=== PATIENT | female | born 1965 | race Caucasian/White ===

== ENCOUNTER 2016-12-19 03:27 | Inpatient (IN) | payer MEDICARE, OTHER ==
--- NOTE | ~2016-12-19 | HP ---
History And Physical [place] [id number] [place]. [address] NAME: CHERELLE ISABEL : 69 STATUS : ADM IN PAT#: [id number] AGE: 51 ADM/REG DATE : 12/19/16 MR#: [id number] REPORT SERV DATE: 12/21/16 DICTATED BY: KELSI LONG DATE: 12/19/16 REPORT STATUS : Draft TRANSCRIBED BY: MODL DATE: 12/19/16 DATE OF ADMISSION: 12/19/2016 CHIEF COMPLAINT: A 51-year-old female presenting with severe bilateral leg ulcers with erythema. HISTORY OF PRESENT ILLNESS: The patient's history was obtained through an interview with the patient, mother, sister, and daughter. Patient unfortunately has been lost to medical probably by her own will for more than a year. She has become increasingly debilitated related not only to her morbid obesity but increasing leg edema with gradual ulcerations. She has noticed her legs just steadily worsen over a period of about a year, but over the last three weeks, they have become very painful and the ulcers have become quite striking. She describes leg pain particularly around her calves and feet, the left leg more pronounced than the right. A cramping, stabbing pain she describes it sometimes "like a nail gun shooting her" and also "like a rat gnawing." Gets up to a 10+ out of 10 severity. She has also had vomiting recently, constant nausea for about 3 weeks with intermittent abdominal pain. No diarrhea. She describes polydipsia, polyuria, but no dysuria. She has had diaphoretic spells but no fevers or chills, but sometimes she feels "hot and squirmy inside". She describes shortness of breath with a least bit of exertion. She has been extremely weak, almost completely bed bound. She has a son who helps her with some activities of daily living. She states her head "felt really weird" but no actual headache. She describes epigastric abdominal pain, a tightness throbbing quality, 4/10 severity. REVIEW OF SYSTEMS: Otherwise, a 14-point review of systems was obtained and was negative. MEDICAL HISTORY: 1. Posttraumatic stress disorder. 2. Morbid obesity. 3. Chronic back pain. 4. Obstructive sleep apnea, but not on CPAP. 5. No previous history of diabetes. 6. No cardiac disease. History And Physical [place] [id number] [place]. [address] NAME: CHERELLE ISABEL : 69 STATUS : ADM IN PAT#: [id number] AGE: 51 ADM/REG DATE : 12/19/16 MR#: [id number] REPORT SERV DATE: 12/21/16 DICTATED BY: KELSI LONG DATE: 12/19/16 REPORT STATUS : Draft TRANSCRIBED BY: SERAFIN DATE: 12/19/16 PAST SURGICAL HISTORY: Cholecystectomy. ALLERGIES: PENICILLIN, CODEINE, HYDROCODONE. SOCIAL HISTORY: Quit smoking in 1995. No alcohol abuse. Lives in [place], [place]. Gets around with a walker. Lives with sister and . FAMILY HISTORY: Grandmother and mother both have had ovarian cancer. CURRENT MEDICATIONS: Include naproxen 220 mg every 12 hours p.r.n., MiraLAX a pack a day. PHYSICAL EXAMINATION: VITAL SIGNS: Temperature 98.2, pulse 108, blood pressure 149/89, respiratory rate 18, and O2 saturation 97% on room air. GENERAL: A chronically ill-appearing female with poor hygiene, and she . HEENT: Eyes: No conjunctival pallor. No scleral icterus. Nares are patent. Oropharynx is clear of obstruction. Moist mucous membranes. NECK: Trachea midline. No thyromegaly. LYMPH: No cervical lymphadenopathy. No supraclavicular lymphadenopathy. RESPIRATORY: Clear to auscultation at bases. No wheezes, rales, or rhonchi. Normal respiratory effort. CARDIOVASCULAR: Tachycardic. Regular rhythm. No murmurs, rubs, or gallops. Chronic- appearing lower extremity edema with a venostasis condition. ABDOMEN: A central pattern of morbid obesity. Tender throughout abdominal examination. Nonfocal though. No guarding. No rebound. Nondistended. No hepatosplenomegaly can be appreciated by exam. DERMATOLOGICAL: The patient's lower extremities have extensive erythema, but the left leg seems more pronounced than the right. There are deep ulcerations, some of these are what could be considered like stage III as they go to the muscle depth with exposure of definite fatty and muscle tissue on the left side in particular. There is purulent drainage. The patient also has a purplish discoloration of her toes. They are cold, they drain, and exquisitely tender to palpation. PSYCHIATRIC: Normal affect. Good mood. Alert and oriented x3. LABORATORY DATA: White blood cell count 11.7, hemoglobin 14, hematocrit 42, platelets . Sodium 123, potassium 6.0, chloride 89, bicarb 24, BUN 100, bicarb 2.2, glucose 284, brain natriuretic peptide 34, troponin negative, albumin 2.9, lipase 1180, amylase 148, lactic acid 2.0. Liver enzymes within normal limits. Urinalysis negative for infection. STUDIES: 1. Chest x-ray by my own evaluation shows no acute cardiopulmonary process. 2. EKG by my own evaluation shows sinus tachycardia. ASSESSMENT AND PLAN: 1. Severe leg ulcers with cellulitis. Wound cultures were obtained at [facility] [address] [address] NAME: CHERELLE ISABEL : 69 STATUS : ADM IN [facility]#: [id number] AGE: 51 ADM/REG DATE : 12/19/16 MR#: [id number] REPORT SERV DATE: 12/21/16 DICTATED BY: KELSI LONG DATE: 12/19/16 REPORT STATUS : Draft TRANSCRIBED BY: SERAFIN DATE: 12/19/16 [facility]. We will place on IV vancomycin and obtain a wound care consult. Check arterial and venous Doppler ultrasounds. The patient has severe cyanosis of the legs. Would also like to rule out DVT. 2. Acute renal failure with BUN of 100 and creatinine of 2.2. Check CT scan of the abdomen. Place on IV fluids. 3. Hyperkalemia with potassium 6.0. Place on IV fluids. Monitor closely. 4. New diagnosis of diabetes. Check hemoglobin A1c. Add Levemir cosmetology educator consult. 5. Abdominal pain with vomiting. Slightly elevated amylase and lipase. Check a CT scan of the abdomen and pelvis. 6. Morbid obesity. Place on a bed. 7. Dyspnea. Check a CT scan of the chest as well. ASTON/SERAFIN Kelsi Long M.D. / [id number] CC: Juan Berger M.D.
--- NOTE | ~2016-12-19 | DS ---
Discharge Summary [facility] [address] [place]. [address] NAME: CHERELLE ISABEL : 69 STATUS : ADM IN [facility]#: [id number] AGE: 51 ADM/REG DATE : 12/19/16 MR#: [id number] REPORT SERV DATE: 12/25/16 DICTATED BY: Juan BERGER DATE: 12/25/16 REPORT STATUS : Draft TRANSCRIBED BY: MODVilma DATE: 12/25/16 ADMISSION DATE: 12/19/2016 DISCHARGE DATE: 12/25/2016 INTERIM SUMMARY DATE: 12/25/2016. DIAGNOSES AT THE TIME OF INTERIM SUMMARY: Chronic arterial and venous insufficiency ulcers, bilateral lower extremities, peripheral arterial disease, cellulitis secondary to #1, acute kidney injury, present on admission, resolved, sleep apnea, obesity, hypoventilation syndrome, morbid obesity, insulin-requiring diabetes. CONSULTS: Vascular Surgery. PROCEDURES: None. BRIEF HOSPITAL SUMMARY: A 51-year-old morbidly obese female, was admitted with vascular insufficiency ulcers and lower extremity cellulitis, subsequent wound culture did grow Serratia. She has currently completed with seven days of antimicrobial therapy that is culture directed and antibiotics will be discontinued after today. Her vascular evaluation did show some diminished flow on her ABIs, Vascular was consulted, and they believe that she has enough vascular flow to promote wound healing. At the present time, we are waiting transition to retirement facility. [facility] can support her bariatric issues as well as provide the necessary wound care, but they are not likely to have a bed until the first of the week . With regard to her diabetes, she is currently on correction insulin, Levemir insulin, and metformin with good glucose control. We continued to monitor her lab work on a regular basis and labs have been stable. Another member of the hospitalist team will provide care starting 12/26/2016 with anticipation of the patient transitioning to retirement after the first of the week. JEANINE/SERAFIN Juan Berger M.D. / [id number] CC: Juan Berger M.D.
--- NOTE | ~2016-12-19 | DS ---
Discharge Summary [place] [address] [facility] [place]. [address] NAME: CHERELLE ISABEL : 69 STATUS : DIS IN PAT#: [id number] AGE: 51 ADM/REG DATE : 12/19/16 MR#: [id number] REPORT SERV DATE: 12/30/16 DICTATED BY: OFE ORTIZ DATE: 12/29/16 REPORT STATUS : Draft TRANSCRIBED BY: MODVilma DATE: 12/29/16 ADMISSION DATE: 12/19/2016 DISCHARGE DATE: 12/29/2016 DISCHARGE DIAGNOSES: 1. Bilateral lower extremity cellulitis. 2. New-onset diabetes mellitus. 3. Acute kidney injury. 4. Super morbid obesity. 5. Obstructive sleep apnea. 6. Obesity hypoventilation syndrome. 7. Chronic venous insufficiency ulcer. 8. Chronic back pain. 9. History of posttraumatic stress disorder. 10.Hyperkalemia, resolved. 11.Intractable nausea and vomiting secondary to gastroenteritis. DISCHARGE CONDITION: Stable. CONSULTATIONS: None. INVASIVE PROCEDURES: None. HISTORY OF PRESENT ILLNESS: This is a 51-year-old morbidly obese female with medical history significant for diabetes mellitus and obstructive sleep apnea, noncompliant with CPAP machine, who presented to the hospital with complaints of bilateral lower extremity ulcers with associated erythema and pain. She also reported persistent nausea, vomiting, and intermittent abdominal pain for about three weeks prior to presentation. PHYSICAL EXAMINATION: VITAL SIGNS: In the ER, temperature 98.2, pulse 108, blood pressure 149/89, respiratory rate 18, oxygen saturation 97% on room air. GENERAL: She appeared chronically ill looking with poor hygiene. EXTREMITIES: Noted to have lower extremity extensive erythema with deep ulcerations in the bilateral lower extremities likely stage 3. There was also associated purulent discharge and purplish discoloration of the toes. LABORATORY DATA: WBC 11.7, hemoglobin 14, hematocrit 42, platelets 358. Chemistry; sodium 121, potassium 5.3. A1c 7.6. An assessment of sepsis secondary to bilateral lower extremity cellulitis and acute kidney injury secondary to hypovolemia was made in the ER. The patient was admitted to the [facility]. HOSPITAL COURSE: 1. Sepsis secondary to bilateral lower extremity cellulitis. Blood cultures were obtained. Wound cultures were obtained. The patient was started on broad-spectrum Discharge Summary [address] [place]. [address] NAME: CHERELLE ISABEL : 69 STATUS : DIS IN PAT#: [id number] AGE: 51 ADM/REG DATE : 12/19/16 MR#: [id number] REPORT SERV DATE: 12/30/16 DICTATED BY: OFE ORTIZ DATE: 12/29/16 REPORT STATUS : Draft TRANSCRIBED BY: MODL DATE: 12/29/16 antibiotics. An arterial and venous Doppler was performed. Venous Doppler showed no evidence of DVT. Arterial doppler showed findings that are compatible with moderate right lower extremity arterial occlusive disease likely originating at the iliac level with monophasic flow from the common femoral artery into the calf. The right ankle- brachial index is diminished at 0.83 possibly slightly elevated due to poor vessel compressibility. Also noted was [id number] left lower extremity arterial occlusive disease likely originated also from the aortoiliac level. Vascular Surgery was consulted. Vascular Surgery noted that the patient has adequate flow despite the moderate occlusive disease. The patient still has adequate blood flow to the bilateral lower extremities. Hence, no vascular intervention needed at this time. Vascular Surgery recommended lifestyle modification including tight diabetes control and cholesterol management as well as antiplatelet therapy. The patient's white cell count gradually trended down. Wound Care was consulted. Recommended daily wound dressing changes. The patient's white blood cell returned back to normal. No further episode of fever noted. Antibiotics were discontinued. The patient was subsequently evaluated by PT and was discharged to long term facility to continue daily wound dressing and follow up at the [facility]. 2. Acute kidney injury secondary to hypovolemia due to persistent vomiting. The patient was noted to have a creatinine of 2.1. The patient was started on gentle IV fluids during the course of this admission. Creatinine trended back down to 1.02, to the patient's known baseline. 3. Diabetes mellitus type 2. A1c 7.6. The patient blood sugar was tightly controlled with Levemir during the course of this admission. She was advised to continue Levemir and metformin at the time of discharge. 4. Hyperkalemia secondary to ineffective arterial volume due to acute kidney injury. The patient was started on gentle IV fluids. The patient was given Kayexalate. The patient's potassium was subsequently repeated, trended down to 4.3, and remained stable throughout the course of this admission. 5. Super morbid obesity. BMI 81.5. The patient was placed on bariatric bed during the course of this admission. No pressure ulcers noted. The patient was advised on low- calorie diet and regular exercise for weight loss. DISCHARGE MEDICATIONS: 1. Levemir 12 units b.i.d. 2. Metformin 500 mg p.o. daily. 3. Levothyroxine 50 mcg p.o. daily. 4. Torsemide 20 mg p.o. daily. 5. Nystatin cream to apply to skin folds b.i.d. 6. MiraLAX one packet p.r.n. DISCHARGE DISPOSITION: To SNF. DISCHARGE ACTIVITY: As tolerated. DISCHARGE DIET: ADA 1800 calorie diet. Greater than 35 minutes was used to prepare this patient's discharge, reconcile medication, Discharge Summary [address] [address] NAME: CHERELLE ISABEL : 69 STATUS : DIS IN PAT#: [id number] AGE: 51 ADM/REG DATE : 12/19/16 MR#: [id number] REPORT SERV DATE: 12/30/16 DICTATED BY: OFE ORTIZ DATE: 12/29/16 REPORT STATUS : Draft TRANSCRIBED BY: SERAFIN DATE: 12/29/16 advise the patient on discharge plans and followup. DICTATED BY: MD EVELIO Fermin/SERAFIN Ofe Ortiz MD / [id number] CC: Ofe Ortiz MD
[2016-12-19 04:13] LABS: BASOPHILS 0.3 %; BASOPHILS ABSOLUTE 0.04 10/3/uL (0.0-0.16); EOSINOPHILS 0.5 %; EOSINOPHILS ABSOLUTE 0.06 10/3/uL (0.0-0.53); HEMATOCRIT 40.1 % (36.0-48.0); HEMOGLOBIN 13.8 g/dL (12.0-16.0); IMMATURE GRANULOCYTES 3.9 %; LYMPHOCYTES 11.2 %; LYMPHOCYTES ABSOLUTE 1.45 10/3/uL (0.67-4.30); MEAN CORPUS HGB CONC 34.4 g/dL (32.0-36.0); MEAN CORPUSCULAR VOLUME 90.1 fL (80-100); MEAN PLATELET VOLUME 9.7 fL (9.2-13.0); NEUTROPHILS 77.1 %; NEUTROPHILS ABSOLUTE 9.94 10/3/uL (2.02-8.40); PLATELET COUNT 358 10/3/uL (150-400); RBC DISTRIBUTION WIDTH 13.8 % (12.0-16.0); RED CELL COUNT 4.45 10/6/uL (4.0-5.6); WHITE BLOOD CELLS 12.9 10/3/uL (4.5-10.5)
[2016-12-19 04:15] LABS: MANUAL DIFF NO %
[2016-12-19 04:37] LABS: A/G RATIO 0.5 (0.7-1.9); ALBUMIN 2.9 G/DL (3.5-5.0); ALKALINE PHOSPHATASE 112 U/L (45-117); BUN (BLOOD UREA NITROGEN) 94 MG/DL (6-23); CALCIUM, SERUM 9.5 MG/DL (8.5-10.4); CHLORIDE, SERUM 90 MMOL/L (96-112); CO2 (CARBON DIOXIDE) 21 MMOL/L (24-34); CPK 54 U/L (0-200); CREATININE 2.24 MG/DL (0.55-1.02); GFR AFRICAN AMERICAN 29 ML/MIN (>=60); GFR NON AFRICAN AMERICAN 25 ML/MIN (>=60); GLOBULIN 5.3 G/DL (2.5-4.1); GLUCOSE, SERUM 240 MG/DL (60-99); POTASSIUM, SERUM 5.3 MMOL/L (3.5-5.3); SGOT(AST) 11 U/L (5-40); SGPT(ALT) 30 U/L (5-65); SODIUM, SERUM 121 MMOL/L (135-148); TOTAL BILIRUBIN 0.4 MG/DL (0-1.2); TOTAL PROTEIN 8.2 G/DL (6.0-8.5); TROPONIN I <0.02 NG/ML (<0.05)
[2016-12-19 04:39] LABS: B NATRIURETIC PEPTIDE (BNP) 18.7 PG/ML (< 100.0)
[2016-12-19 04:39] LABS: CK-MB 2.4 NG/ML
[2016-12-19] MEDS ORDERED: MIRALAX POWDER1 PKT PO (05:30)
[2016-12-19] MEDS ORDERED: ALEVE220 MG PO (05:31)
[2016-12-19 06:17] LABS: INTERNATIONAL NORMAL RATI 1.2 UNITS (-)
[2016-12-19 06:18] LABS: PARTIAL THROMBO TIME 28.5 SEC (22.5-37.2)
[2016-12-19 08:12] LABS: GLYCOHEMOGLOBIN (HbA1c) 7.6 % (4.7-6.1)
[2016-12-19 14:16] LABS: SALICYLATE 1.7 MG/DL (-)
[2016-12-19 19:06] LABS: ASCORBIC ACID (UR NOT ORDER) NEG (NEG); BILIRUBIN, URINE NEGATIVE (NEG); KETONE, URINE NEGATIVE (NEG); LEUKOCYTE ESTERASE(NOT OR NEG (NEG); WBC (NOT ORDERED) (RFLEX) < 1 (0-5)
[2016-12-19 19:22] LABS: SODIUM, URINE 10 MEQ/L
[2016-12-19 19:44] LABS: OSMOLALITY, URINE 430 MOSM/KG (50-1200)
[2016-12-20 05:22] LABS: BASOPHILS 0.4 %; BASOPHILS ABSOLUTE 0.03 10/3/uL (0.0-0.16); EOSINOPHILS 1.8 %; EOSINOPHILS ABSOLUTE 0.15 10/3/uL (0.0-0.53); HEMATOCRIT 35.8 % (36.0-48.0); HEMOGLOBIN 12.1 g/dL (12.0-16.0); IMMATURE GRANULOCYTES 2.5 %; IMMATURE GRANULOCYTES ABSOLUTE 0.21 10/3/uL (0.0-0.11); LYMPHOCYTES 15.4 %; LYMPHOCYTES ABSOLUTE 1.28 10/3/uL (0.67-4.30); MANUAL DIFF NO %; MEAN CORPUS HGB CONC 33.8 g/dL (32.0-36.0); MEAN CORPUSCULAR HEMOGLOB 30.8 pg (26.0-34.0); MEAN CORPUSCULAR VOLUME 91.1 fL (80-100); MEAN PLATELET VOLUME 9.4 fL (9.2-13.0); MONOCYTES 10.6 %; MONOCYTES ABSOLUTE 0.88 10/3/uL (0.21-1.20); NEUTROPHILS 69.3 %; NEUTROPHILS ABSOLUTE 5.77 10/3/uL (2.02-8.40); PLATELET COUNT 274 10/3/uL (150-400); RED CELL COUNT 3.93 10/6/uL (4.0-5.6); WHITE BLOOD CELLS 8.3 10/3/uL (4.5-10.5)
[2016-12-20 05:40] LABS: CHLORIDE, SERUM 99 MMOL/L (96-112); PHOSPHORUS, SERUM 4.4 MG/DL (2.5-4.5); SGOT(AST) 13 U/L (5-40); SGPT(ALT) 23 U/L (5-65); SODIUM, SERUM 132 MMOL/L (135-148); TOTAL BILIRUBIN 0.4 MG/DL (0-1.2); TOTAL PROTEIN 6.7 G/DL (6.0-8.5); TRIGLYCERIDE 130 MG/DL (< 150)
[2016-12-20 05:41] LABS: A/G RATIO 0.5 (0.7-1.9); ALBUMIN 2.3 G/DL (3.5-5.0); ALKALINE PHOSPHATASE 90 U/L (45-117); BUN (BLOOD UREA NITROGEN) 72 MG/DL (6-23); CO2 (CARBON DIOXIDE) 26 MMOL/L (24-34); CREATININE 1.47 MG/DL (0.55-1.02); GFR AFRICAN AMERICAN 48 ML/MIN (>=60); GFR NON AFRICAN AMERICAN 41 ML/MIN (>=60); GLOBULIN 4.4 G/DL (2.5-4.1); GLUCOSE, SERUM 144 MG/DL (60-99); POTASSIUM, SERUM 4.1 MMOL/L (3.5-5.3)
[2016-12-20 06:13] LABS: PROCALCITONIN 0.15 ng/mL (<0.5)
[2016-12-21 05:01] LABS: BASOPHILS 0.3 %; BASOPHILS ABSOLUTE 0.03 10/3/uL (0.0-0.16); EOSINOPHILS 3.3 %; EOSINOPHILS ABSOLUTE 0.28 10/3/uL (0.0-0.53); HEMATOCRIT 34.5 % (36.0-48.0); HEMOGLOBIN 11.5 g/dL (12.0-16.0); IMMATURE GRANULOCYTES 3.7 %; IMMATURE GRANULOCYTES ABSOLUTE 0.32 10/3/uL (0.0-0.11); LYMPHOCYTES 22.4 %; LYMPHOCYTES ABSOLUTE 1.92 10/3/uL (0.67-4.30); MEAN CORPUS HGB CONC 33.3 g/dL (32.0-36.0); MEAN CORPUSCULAR HEMOGLOB 30.5 pg (26.0-34.0); MEAN CORPUSCULAR VOLUME 91.5 fL (80-100); MEAN PLATELET VOLUME 9.5 fL (9.2-13.0); MONOCYTES 7.5 %; MONOCYTES ABSOLUTE 0.64 10/3/uL (0.21-1.20); NEUTROPHILS 62.8 %; NEUTROPHILS ABSOLUTE 5.39 10/3/uL (2.02-8.40); PLATELET COUNT 297 10/3/uL (150-400); RBC DISTRIBUTION WIDTH 13.9 % (12.0-16.0); RED CELL COUNT 3.77 10/6/uL (4.0-5.6); WHITE BLOOD CELLS 8.6 10/3/uL (4.5-10.5)
[2016-12-21 05:02] LABS: MANUAL DIFF NO %
[2016-12-21 05:16] LABS: CALCIUM, SERUM 8.8 MG/DL (8.5-10.4); CHLORIDE, SERUM 97 MMOL/L (96-112); CO2 (CARBON DIOXIDE) 30 MMOL/L (24-34); CREATININE 1.21 MG/DL (0.55-1.02); GFR AFRICAN AMERICAN 61 ML/MIN (>=60); GFR NON AFRICAN AMERICAN 52 ML/MIN (>=60); GLUCOSE, SERUM 118 MG/DL (60-99); POTASSIUM, SERUM 3.4 MMOL/L (3.5-5.3); SODIUM, SERUM 136 MMOL/L (135-148)
[2016-12-21 05:18] LABS: BUN (BLOOD UREA NITROGEN) 54 MG/DL (6-23); PHOSPHORUS, SERUM 3.1 MG/DL (2.5-4.5)
[2016-12-21 14:54] LABS: ALLENS TEST Pos; BE (BASE EXCESS) -4.1 MEQ/L (0 +/- 2.5); CARBOXYHEMOGLOBIN 1.4 % (0-3); DEVICE R/A; HCO3 (ACTUAL BICARBONATE) 20.1 MEQ/L (23-27); HEMOBLOGIN CONTENT 13.4 G/DL (12-16); INSTRUMENT SERIAL # 8083; O2 CONTENT 17.5 VOL% (18-24); OPERATOR ID 32186; PCO2 (CO2 TENSION) 34 MMHG (35-45); PO2 (O2 TENSION) 73 MMHG (79-93); SAMPLE Arterial; pH 7.39 (7.37-7.43)
[2016-12-22 05:31] LABS: CALCIUM, SERUM 8.6 MG/DL (8.5-10.4); CHLORIDE, SERUM 95 MMOL/L (96-112); CO2 (CARBON DIOXIDE) 34 MMOL/L (24-34); CREATININE 1.07 MG/DL (0.55-1.02); GFR AFRICAN AMERICAN 71 ML/MIN (>=60); GFR NON AFRICAN AMERICAN 61 ML/MIN (>=60); GLUCOSE, SERUM 120 MG/DL (60-99); SODIUM, SERUM 138 MMOL/L (135-148)
[2016-12-22 05:41] LABS: BUN (BLOOD UREA NITROGEN) 38 MG/DL (6-23); POTASSIUM, SERUM 2.9 MMOL/L (3.5-5.3)
[2016-12-22 08:27] LABS: BASOPHILS 0.6 %; BASOPHILS ABSOLUTE 0.05 10/3/uL (0.0-0.16); EOSINOPHILS 3.1 %; EOSINOPHILS ABSOLUTE 0.25 10/3/uL (0.0-0.53); HEMATOCRIT 36.1 % (36.0-48.0); HEMOGLOBIN 11.8 g/dL (12.0-16.0); IMMATURE GRANULOCYTES 3.5 %; IMMATURE GRANULOCYTES ABSOLUTE 0.28 10/3/uL (0.0-0.11); LYMPHOCYTES 23.6 %; LYMPHOCYTES ABSOLUTE 1.89 10/3/uL (0.67-4.30); MANUAL DIFF NO %; MEAN CORPUS HGB CONC 32.7 g/dL (32.0-36.0); MEAN CORPUSCULAR HEMOGLOB 30.7 pg (26.0-34.0); MEAN PLATELET VOLUME 9.4 fL (9.2-13.0); MONOCYTES 8.9 %; MONOCYTES ABSOLUTE 0.71 10/3/uL (0.21-1.20); NEUTROPHILS 60.3 %; NEUTROPHILS ABSOLUTE 4.84 10/3/uL (2.02-8.40); NUCLEATED RED BLOOD CELLS 0.3 /100WBC (0-0); PLATELET COUNT 327 10/3/uL (150-400); RBC DISTRIBUTION WIDTH 13.9 % (12.0-16.0); RED CELL COUNT 3.84 10/6/uL (4.0-5.6)
[2016-12-23 05:35] LABS: BASOPHILS 0.3 %; BASOPHILS ABSOLUTE 0.03 10/3/uL (0.0-0.16); EOSINOPHILS 3.3 %; HEMATOCRIT 34.7 % (36.0-48.0); HEMOGLOBIN 11.4 g/dL (12.0-16.0); IMMATURE GRANULOCYTES ABSOLUTE 0.27 10/3/uL (0.0-0.11); LYMPHOCYTES 27.5 %; LYMPHOCYTES ABSOLUTE 2.48 10/3/uL (0.67-4.30); MEAN CORPUS HGB CONC 32.9 g/dL (32.0-36.0); MEAN CORPUSCULAR HEMOGLOB 30.9 pg (26.0-34.0); MEAN PLATELET VOLUME 8.8 fL (9.2-13.0); MONOCYTES 5.6 %; MONOCYTES ABSOLUTE 0.51 10/3/uL (0.21-1.20); NEUTROPHILS 60.3 %; NEUTROPHILS ABSOLUTE 5.44 10/3/uL (2.02-8.40); PLATELET COUNT 325 10/3/uL (150-400); RBC DISTRIBUTION WIDTH 14.2 % (12.0-16.0); RED CELL COUNT 3.69 10/6/uL (4.0-5.6)
[2016-12-23 05:41] LABS: MANUAL DIFF NO %
[2016-12-23 06:03] LABS: BUN (BLOOD UREA NITROGEN) 27 MG/DL (6-23); CALCIUM, SERUM 8.7 MG/DL (8.5-10.4); CHLORIDE, SERUM 97 MMOL/L (96-112); CO2 (CARBON DIOXIDE) 37 MMOL/L (24-34); CREATININE 0.95 MG/DL (0.55-1.02); GFR AFRICAN AMERICAN 82 ML/MIN (>=60); GFR NON AFRICAN AMERICAN 70 ML/MIN (>=60); GLUCOSE, SERUM 122 MG/DL (60-99); PHOSPHORUS, SERUM 1.9 MG/DL (2.5-4.5); POTASSIUM, SERUM 3.2 MMOL/L (3.5-5.3); SODIUM, SERUM 138 MMOL/L (135-148)
[2016-12-24 05:58] LABS: CALCIUM, SERUM 8.1 MG/DL (8.5-10.4); CHLORIDE, SERUM 100 MMOL/L (96-112); CREATININE 0.83 MG/DL (0.55-1.02); GFR AFRICAN AMERICAN 96 ML/MIN (>=60); GFR NON AFRICAN AMERICAN 83 ML/MIN (>=60); GLUCOSE, SERUM 113 MG/DL (60-99); POTASSIUM, SERUM 4.1 MMOL/L (3.5-5.3); SODIUM, SERUM 138 MMOL/L (135-148)
[2016-12-24 05:59] LABS: BUN (BLOOD UREA NITROGEN) 22 MG/DL (6-23); CO2 (CARBON DIOXIDE) 31 MMOL/L (24-34)
[2016-12-26 06:45] LABS: BASOPHILS 0.4 %; BASOPHILS ABSOLUTE 0.04 10/3/uL (0.0-0.16); EOSINOPHILS 3.7 %; EOSINOPHILS ABSOLUTE 0.33 10/3/uL (0.0-0.53); HEMATOCRIT 34.9 % (36.0-48.0); HEMOGLOBIN 11.3 g/dL (12.0-16.0); IMMATURE GRANULOCYTES 1.6 %; IMMATURE GRANULOCYTES ABSOLUTE 0.14 10/3/uL (0.0-0.11); LYMPHOCYTES 19.3 %; LYMPHOCYTES ABSOLUTE 1.72 10/3/uL (0.67-4.30); MEAN CORPUS HGB CONC 32.4 g/dL (32.0-36.0); MEAN CORPUSCULAR HEMOGLOB 30.5 pg (26.0-34.0); MEAN CORPUSCULAR VOLUME 94.3 fL (80-100); MEAN PLATELET VOLUME 8.7 fL (9.2-13.0); MONOCYTES 6.2 %; MONOCYTES ABSOLUTE 0.55 10/3/uL (0.21-1.20); NEUTROPHILS 68.8 %; NEUTROPHILS ABSOLUTE 6.13 10/3/uL (2.02-8.40); PLATELET COUNT 292 10/3/uL (150-400); RBC DISTRIBUTION WIDTH 14.5 % (12.0-16.0); WHITE BLOOD CELLS 8.9 10/3/uL (4.5-10.5)
[2016-12-26 06:46] LABS: MANUAL DIFF NO %
[2016-12-26 06:58] LABS: BUN (BLOOD UREA NITROGEN) 21 MG/DL (6-23); CALCIUM, SERUM 8.8 MG/DL (8.5-10.4); CHLORIDE, SERUM 102 MMOL/L (96-112); CO2 (CARBON DIOXIDE) 35 MMOL/L (24-34); CREATININE 0.93 MG/DL (0.55-1.02); GFR AFRICAN AMERICAN 84 ML/MIN (>=60); GFR NON AFRICAN AMERICAN 72 ML/MIN (>=60); GLUCOSE, SERUM 117 MG/DL (60-99); POTASSIUM, SERUM 3.4 MMOL/L (3.5-5.3); SODIUM, SERUM 142 MMOL/L (135-148)
[2016-12-27 07:45] LABS: BASOPHILS 0.3 %; BASOPHILS ABSOLUTE 0.02 10/3/uL (0.0-0.16); EOSINOPHILS 4.9 %; EOSINOPHILS ABSOLUTE 0.32 10/3/uL (0.0-0.53); HEMATOCRIT 36.3 % (36.0-48.0); HEMOGLOBIN 11.6 g/dL (12.0-16.0); IMMATURE GRANULOCYTES 1.2 %; IMMATURE GRANULOCYTES ABSOLUTE 0.08 10/3/uL (0.0-0.11); LYMPHOCYTES 23.3 %; LYMPHOCYTES ABSOLUTE 1.53 10/3/uL (0.67-4.30); MEAN CORPUSCULAR HEMOGLOB 30.9 pg (26.0-34.0); MEAN CORPUSCULAR VOLUME 96.8 fL (80-100); MEAN PLATELET VOLUME 8.9 fL (9.2-13.0); MONOCYTES 6.5 %; MONOCYTES ABSOLUTE 0.43 10/3/uL (0.21-1.20); NEUTROPHILS 63.8 %; PLATELET COUNT 309 10/3/uL (150-400); RBC DISTRIBUTION WIDTH 14.4 % (12.0-16.0); RED CELL COUNT 3.75 10/6/uL (4.0-5.6); WHITE BLOOD CELLS 6.6 10/3/uL (4.5-10.5)
[2016-12-27 07:47] LABS: MANUAL DIFF NO %
== END 2016-12-29 19:00 | DRG 871 ==
LOC: IMCU 03:27 → 6NO 12-22 16:31
PROVIDERS: Hospitalist; Internal Medicine
PROC: 02HV33Z Insertion of Infusion Device into Superior Vena Cava, Percutaneous Approach (ICD-10-PCS; principal; 2016-12-19)
PROC: 4A02X4A Measurement of Cardiac Electrical Activity, Guidance, External Approach (ICD-10-PCS; 2016-12-19)
DX: A41.9 Sepsis, unspecified organism (principal); K85.90 Acute pancreatitis without necrosis or infection, unspecified; N17.9 Acute kidney failure, unspecified; E11.52 Type 2 diabetes mellitus with diabetic peripheral angiopathy with gangrene; L03.115 Cellulitis of right lower limb; L03.116 Cellulitis of left lower limb; E66.2 Morbid (severe) obesity with alveolar hypoventilation; E87.1 Hypo-osmolality and hyponatremia; Z68.45 Body mass index [BMI] 70 or greater, adult; L97.812 Non-pressure chronic ulcer of other part of right lower leg with fat layer exposed; L97.822 Non-pressure chronic ulcer of other part of left lower leg with fat layer exposed; E87.5 Hyperkalemia; I87.2 Venous insufficiency (chronic) (peripheral); F43.10 Post-traumatic stress disorder, unspecified; G47.33 Obstructive sleep apnea (adult) (pediatric); R23.0 Cyanosis; K52.9 Noninfective gastroenteritis and colitis, unspecified; B96.89 Other specified bacterial agents as the cause of diseases classified elsewhere; M54.5 Low back pain; E03.9 Hypothyroidism, unspecified; E87.6 Hypokalemia; E86.1 Hypovolemia; Z91.19 Patient's noncompliance with other medical treatment and regimen; Z87.891 Personal history of nicotine dependence; Z79.4 Long term (current) use of insulin
CPT/HCPCS: 36569; 71010; 71250; 74176; 80048; 80053; 81001; 82150; 82550; 82553; 82805; 82962; 83036; 83605; 83690; 83735; 83880; 83935; 84100; 84132; 84145; 84300; 84443; 84478; 84484; 85025; 85610; 85730; 87040; 87070; 87077; 87186; 87205; 87641; 93005; 93923; 93970; 97110-GP; 97161-GP; 97530-GP; A9270-GY; C1751; G0480; G8978-CN-GP; G8979-CL-GP; J1940; J3370; J3475